=== PATIENT | female | born 1965 | race Two or more races ===

== ENCOUNTER 2021-06-27 09:43 | Observation (INO) | payer OTHER ==
[2021-06-27 09:52] VITALS: BMI 26.4
[2021-06-27 10:47] LABS: BASO % 1.7 % (0-2.0); EOS % 1.7 % (0-4.5); HEMATOCRIT 38.6 % (32.4-45.2); HEMOGLOBIN 13.2 GM/dL (10.7-15.3); LYMPH % 56.6 % (8-40); MCH 31.1 pg (25.7-33.7); MCHC 34.2 g/dl (32.0-36.0); MEAN CELL VOLUME 90.9 fl (80-96); MEAN PLT VOLUME 7.9 fl (7.5-11.1); MONO % 8.6 % (3.8-10.2); NEUT % 31.4 % (42.8-82.8); PLATELET COUNT 242 10^3/uL (134-434); RBC 4.25 M/mm3 (3.60-5.2)
[2021-06-27] MEDS: SODIUM CHLORIDE 1,000 ML IV SCH (10:49)
[2021-06-27 10:54] LABS: INR 1.03 (0.83-1.09); PROTHROMBIN TIME (PATIENT) 12.4 SEC (9.7-13.0)
[2021-06-27 10:56] LABS: ACTIVATED PTT 32.7 SECONDS (25.2-36.5)
[2021-06-27 10:57] LABS: CHLORIDE 105 mmol/L (98-107); SODIUM 138 mmol/L (136-145)
[2021-06-27 11:03] LABS: ALBUMIN 4.1 g/dl (3.4-5.0); ANION GAP 6 MMOL/L (8-16); BLOOD UREA NITROGEN 12.5 mg/dL (7-18); CALCIUM 9.3 mg/dL (8.5-10.1); CO2 28 mmol/L (21-32); GLUCOSE,RANDOM 74 mg/dL (74-106)
[2021-06-27 11:05] LABS: CHOLESTEROL 203 mg/dL (50-200); CREATININE 0.8 mg/dL (0.55-1.3); SGOT/AST 13 U/L (15-37); SGPT/ALT 19 U/L (13-61)
[2021-06-27 11:07] LABS: BILIRUBIN,TOTAL 0.4 mg/dL (0.2-1); LDL CHOLESTEROL (ONLY SJRH) 119 mg/dL (5-100); TOT PROT 8.2 g/dl (6.4-8.2); TRIGLYCERIDES 75 mg/dL (0-150)
[2021-06-27 11:08] LABS: ALK PHOS 87 U/L (45-117)
[2021-06-27 11:09] LABS: HDL CHOLESTEROL 60 mg/dL (40-60)
[2021-06-27] MEDS ORDERED: ACETAMINOPHEN 1000 MG/100 ML VIAL (NON FORMULARY) IVPB ONE (11:10)
[2021-06-27] MEDS ORDERED: ACETAMINOPHEN INJECTION 100 ML IVPB ONE (11:12)
[2021-06-27 15:44] LABS: URINE APPEARANCE CLEAR; URINE BILIRUBIN NEGATIVE (NEGATIVE); URINE COLOR YELLOW; URINE GLUCOSE (UA) NEGATIVE (NEGATIVE); URINE KETONE NEGATIVE (NEGATIVE); URINE LEUK ESTERASE NEGATIVE (NEGATIVE); URINE NITRITE NEGATIVE (NEGATIVE); URINE PROTEIN NEGATIVE (NEGATIVE); URINE UROBILINOGEN 0.2 mg/dL (0.2-1.0)
[2021-06-27 15:46] LABS: EPI CELLS 3 /uL (0-25.1); HYALINE CASTS 0 /uL (0-3.1); URINE BACTERIA 71 /uL (0-1359); URINE RBC 3 /uL (0-23.9); URINE WBC 1 /uL (0-25.8)
[2021-06-27] MEDS ORDERED: ACETAMINOPHEN 1000 MG/100 ML VIAL (NON FORMULARY) IVPB PRN (22:35)
[2021-06-28 06:02] VITALS: TEMP 98.2
[2021-06-28 09:28] LABS: BASO % 1.3 % (0-2.0); EOS % 2.6 % (0-4.5); HEMATOCRIT 38.7 % (32.4-45.2); HEMOGLOBIN 13.4 GM/dL (10.7-15.3); LYMPH % 49.9 % (8-40); MCH 31.6 pg (25.7-33.7); MCHC 34.7 g/dl (32.0-36.0); MEAN CELL VOLUME 91.3 fl (80-96); MEAN PLT VOLUME 8.3 fl (7.5-11.1); NEUT % 38.2 % (42.8-82.8); PLATELET COUNT 239 10^3/uL (134-434); RBC 4.24 M/mm3 (3.60-5.2); RDW 14.3 % (11.6-15.6); WHITE BLOOD COUNT 3.5 K/mm3 (4.0-10.0)
[2021-06-28 09:55] LABS: ALBUMIN 3.7 g/dl (3.4-5.0); BLOOD UREA NITROGEN 10.7 mg/dL (7-18); CALCIUM 8.6 mg/dL (8.5-10.1)
[2021-06-28 09:58] LABS: BILIRUBIN,TOTAL 0.7 mg/dL (0.2-1); CREATININE 0.7 mg/dL (0.55-1.3); TOT PROT 7.5 g/dl (6.4-8.2)
[2021-06-28] MEDS: SODIUM CHLORIDE 1,000 ML IV SCH (10:45)
[2021-06-28 17:20] VITALS: BP 126/74; PULSE 75
[2021-06-29] MEDS ORDERED: ENOXAPARIN NA (PORCINE) 40 MG/0.4 ML DISP.SYRIN SQ SCH (10:00)
== END 2021-06-28 17:20 | disposition home or self-care (01) ==
LOC: JER 09:43 → JERBED 18:15
PROVIDERS: ATTEND Internal Medicine
PROC: 3E0337Z Introduction of Electrolytic and Water Balance Substance into Peripheral Vein, Percutaneous Approach (ICD-10-PCS; principal; 2021-06-27)
PROC: 3E033NZ Introduction of Analgesics, Hypnotics, Sedatives into Peripheral Vein, Percutaneous Approach (ICD-10-PCS; 2021-06-27)
DX: E03.9 Hypothyroidism, unspecified (principal); R07.89 Other chest pain; R51.9 Headache, unspecified; M19.90 Unspecified osteoarthritis, unspecified site; Z29.9 Encounter for prophylactic measures, unspecified
CPT/HCPCS: 36415; 70450-TC; 71275-TC; 72125-TC; 74174-TC; 80053; 80061; 81003; 82550; 82962; 83036; 84443; 84484; 85025; 85610; 85730; 86850; 86900; 86901; 93005; 93010; 93306-TC; 96374; 99285-25; C9803; G0378; J0131; Q9967; U0003; U0005